=== PATIENT | male | born 2000 | race Caucasian/White ===

== ENCOUNTER 2018-05-07 01:19 | Emergency (ER) | payer OTHER ==
[2018-05-07] MEDS ORDERED: AMOXICILLIN/CLAVULANATE POT 875/125 MG TAB PO ONE (01:42)
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
[2018-05-07 06:22] VITALS: BP 119/75
== END 2018-05-13 12:21 | disposition home or self-care (01) ==
PROC: 0HQGXZZ Repair Left Hand Skin, External Approach (ICD-10-PCS; principal; 2018-05-07)
DX: S61.412A Laceration without foreign body of left hand, initial encounter (principal); Y04.0XXA Assault by unarmed brawl or fight, initial encounter; Y99.8 Other external cause status